=== PATIENT | male | born 1945 | race Caucasian/White ===

== ENCOUNTER 2021-09-27 11:24 | Emergency (ER) | payer OTHER ==
[~2021-09-27] VITALS: Ht 165.1 cm; Wt 70.3 kg
[2021-09-27 11:26] VITALS: BP 135/72
[2021-09-27] MEDS ORDERED: ACETAMINOPHEN 500 MG TABLET PO SCH (12:00)
[2021-09-27] MEDS ORDERED: LIDOCAINE HCL MPF 1% 5ML VIAL ONE (12:35)
[2021-09-27] MEDS ORDERED: CEPH500B PO (13:08)
== END 2021-09-27 13:34 | disposition home or self-care (01) ==
LOC: EDH 11:24
DX: S51.011A Laceration without foreign body of right elbow, initial encounter (principal); M25.572 Pain in left ankle and joints of left foot; M25.512 Pain in left shoulder; E11.9 Type 2 diabetes mellitus without complications; W20.8XXA Other cause of strike by thrown, projected or falling object, initial encounter; Y93.89 Activity, other specified; Y92.89 Other specified places as the place of occurrence of the external cause; Y99.8 Other external cause status
CPT/HCPCS: 12002; 73030; 73080; 73590; 73600; 99284; J3490

== ENCOUNTER 2021-10-03 17:49 | Emergency (ER) | payer OTHER ==
[~2021-10-03] VITALS: Ht 165.1 cm; Wt 70.3 kg
[~2021-10-03 17:49] MED LIST: CEPH500B PO
[2021-10-03 17:53] VITALS: BP 163/75
[2021-10-03] MEDS ORDERED: NEOMY SULF/BACITRA/POLYMYXIN B 1 EACH PACKET TP ONE (21:00)
== END 2021-10-03 20:58 | disposition home or self-care (01) ==
LOC: EDH 17:49
DX: S80.12XA Contusion of left lower leg, initial encounter (principal); Z48.02 Encounter for removal of sutures; E78.00 Pure hypercholesterolemia, unspecified; E11.9 Type 2 diabetes mellitus without complications; E03.9 Hypothyroidism, unspecified; X58.XXXA Exposure to other specified factors, initial encounter; Y93.89 Activity, other specified; Y92.89 Other specified places as the place of occurrence of the external cause; Y99.8 Other external cause status
CPT/HCPCS: 93971